=== PATIENT | male | born 1955 | race Caucasian/White ===

== ENCOUNTER → 2021-09-03 | Outpatient (CLI) | payer MEDICARE, BC ==
[~2021-09-03] MED LIST: DIPH50; DIPH50 PO; FAMO20 PO; PRED20 PO
== END | disposition home or self-care (01) ==
LOC: LAB 09:50
DX: R05.9 Cough, unspecified (principal)
CPT/HCPCS: 87070; 87205

== ENCOUNTER 2023-04-16 07:49 | Day surgery (SDC) | payer MEDICARE, OTHER ==
[~2023-04-16] VITALS: Ht 182.9 cm; Wt 71.8 kg
[2023-04-16] MEDS ORDERED: ASPI81CH (08:18)
[2023-04-16] MEDS ORDERED: BENZ100A (08:18)
[2023-04-16] MEDS ORDERED: FURO20 (08:18)
[2023-04-16] MEDS ORDERED: Lysine500 MG (08:21)
[2023-04-16] MEDS ORDERED: POTA10T (08:22)
[2023-04-16 10:30] VITALS: BP 110/50
--- NOTE | 2023-04-16 10:32 | NUR ---
04/16/23 1032 [facility] STORM PT O2 SATS 88% RA IMMEDIATELY COMING INTO STEP DOWN; PUT NC ON PT W/3L O2% O2 SATS 96%. PT CONTINUED TO COUGH UP SECRETIONS AND CLEAR AIRWAY. DUONEB GIVEN O2 100% RA AFTER BREATHING TX
--- NOTE | 2023-04-16 13:05 | NUR ---
04/16/23 1305 [facility] LATE ENTRY: PRIOR TO PROCEDURE DR MARTIN CONSULTED D/T PATIENT REPORTED THAT LAST WEEK HE HAD AN "XRAY THAT SAID HIS LEFT LUNG WAS WORKING AT 50%" AND CHART NOTES PLEURAL EFFUSION TO R LUNG NOTED IN PULM REPORT FROM 03-19-2023. LUNGS WERE CLEAR TO AUSCULTATION, ASSESSED BY DR MARTIN AND RN. DR MARTIN DISCUSSED WITH DR NICOLE. PER DR MARTIN AND DR NICOLE, GIVE 4% LIDOCAINE NEBULIZED TO PATIENT PRIOR TO PROCEDURE. DR MARTIN IN ROOM DURING PROCEDURE. AFTER REMOVAL OF SCOPE AND PROCEDURE ENDED, WHILE RN WAS ATTEMPTING TO WAKE PATIENT AND PATIENT COUGHED A FEW TIMES, SPO2 DECREASED TO 90% AND OXYGEN HAD TO BE REAPPLIED TO PATIENT AND PATIENT SUCTIONED AND CHIN LIFT COMPLETED BY ILDA MILLER. PATIENT SPO2 IMPROVED TO 96% AND PATIENT OPENED EYES, CHIN LIFT ENDED AND SPO2 MAINTAINED. PATIENT PLACED ON ROOM AIR AND SAT UP IN BED AND SUCTIONED. PATIENT MAINTAINED SPO2 OF 95% PRIOR TO TRANSFER OUT OF OR. PATIENT TRANSFERRED TO RECOVERY AND REPORT GIVEN AND CARE TRANSFERRED TO NITA,RN AND TCR,RN.
== END 2023-04-16 10:59 | disposition home or self-care (01) ==
LOC: ORSCSDS 07:49
PROVIDERS: Internal Medicine Gastroenterology
PROC: 0DB58ZX Excision of Esophagus, Via Natural or Artificial Opening Endoscopic, Diagnostic (ICD-10-PCS; principal; 2023-04-16 09:00)
PROC: 0D757ZZ Dilation of Esophagus, Via Natural or Artificial Opening (ICD-10-PCS; principal; 2023-04-16 09:00)
DX: R13.10 Dysphagia, unspecified (principal); K21.9 Gastro-esophageal reflux disease without esophagitis; K44.9 Diaphragmatic hernia without obstruction or gangrene; Z79.82 Long term (current) use of aspirin; J45.909 Unspecified asthma, uncomplicated; Z95.0 Presence of cardiac pacemaker; I48.92 Unspecified atrial flutter; Z79.899 Other long term (current) drug therapy
CPT/HCPCS: 88305; J2001; J2704; J7120